=== PATIENT | male | born 1960 | race Caucasian/White ===

== ENCOUNTER 2019-06-02 23:33 | Emergency (ER) | payer SELFPAY ==
[~2019-06-02] VITALS: Ht 162.6 cm; Wt 61.2 kg
[2019-06-03] MEDS ORDERED: LIDOCAINE HCL 1% 20ML VIAL (Pyxis) INJ INFIL ONE (01:15)
[2019-06-03] MEDS ORDERED: CEPHALEXIN 250MG CAPSULE PO ONE (01:15)
[2019-06-03] MEDS ORDERED: IBUPROFEN 600MG TABLET PO ONE (01:15)
[2019-06-03] MEDS ORDERED: SULFAMETHOXAZOLE/TRIMETHOPRIM 800/160MG TABLET PO ONE (01:15)
[2019-06-03 01:39] VITALS: BP 110/78
[2019-06-03] MEDS ORDERED: TETANUS, DIPHTHERIA, PERTUSSIS VAC/PF 0.5ML (>7YR OLD) IM ONE (02:45)
== END 2019-06-03 03:19 | disposition home or self-care (01) ==
LOC: ER 23:33
DX: J34.0 Abscess, furuncle and carbuncle of nose (principal)
CPT/HCPCS: 87070; 87205; 90471; 90715; 99283; J3490